=== PATIENT | female | born 1970 | race African-American/Black ===

== ENCOUNTER 2018-03-26 14:07 | Emergency (ER) | payer BC, OTHER ==
[~2018-03-26] VITALS: Ht 157.5 cm; Wt 59.0 kg
[~2018-03-26 14:07] MED LIST: FLAGYL500 MG PO; FLEXERIL PO; IBUPROFEN 800800 M1 PO; KEFLEX500 MG PO; LISINOPRIL-HCT1 EACH; NORFLEX100 MG PO; SILVADENE20 GM TP; TRAMADOL 50 MG50 MG PO; TYLENOL W/CODEI1 TA2 PO; ULTRAM 50MG TAB50 MG PO
[2018-03-26 14:49] LABS: URINE BILIRUBIN NEGATIVE (Negative); URINE BLOOD TRACE (Negative); URINE CLARITY CLEAR; URINE COLOR YELLOW; URINE GLUCOSE-RANDOM* NEGATIVE (Negative); URINE KETONES NEGATIVE (Negative); URINE LEUKOCYTES-REFLEX NEGATIVE (Negative); URINE NITRITE-REFLEX NEGATIVE (Negative); URINE PROTEIN (DIPSTICK) NEGATIVE (Negative); URINE SPECIFIC GRAVITY 1.015 (1.005-1.035); URINE UROBILINOGEN 0.2 E.U./dl (0.2-1.0)
[2018-03-26] MEDS ORDERED: FLAGYL500 M1 PO (15:44)
[2018-03-26 15:56] VITALS: BP 159/90
== END 2018-03-26 15:51 | disposition home or self-care (01) ==
LOC: ER 14:07
PROVIDERS: Physician Assistant
DX: N76.0 Acute vaginitis (principal); B96.89 Other specified bacterial agents as the cause of diseases classified elsewhere; I10 Essential (primary) hypertension; Z91.040 Latex allergy status

== ENCOUNTER → 2019-11-03 | Emergency (ER) | payer BC, OTHER ==
[~2019-11-03] VITALS: Ht 157.5 cm; Wt 59.0 kg
[~2019-11-03] MED LIST changes: +COZAAR 25 MG TA25 M1 PO; +FLAGYL500 M1 PO; +KEFLEX500 M1 PO; +PREDNISONE 20 M20 MG PO
[2019-11-03 15:13] VITALS: BP 157/100
== END ==
LOC: ER 14:14
DX: L23.7 Allergic contact dermatitis due to plants, except food (principal); I10 Essential (primary) hypertension; Z98.51 Tubal ligation status; Z79.899 Other long term (current) drug therapy; Z91.040 Latex allergy status

== ENCOUNTER → 2020-01-23 | Outpatient (CLI) | payer BC, OTHER | LOC: LAB 10:35 | PROVIDERS: ATTEND Family Medicine | DX: Z20.828 Contact with and (suspected) exposure to other viral communicable diseases (principal) ==